=== PATIENT | female | born 1995 | race Caucasian/White ===

== ENCOUNTER 2017-05-04 18:21 | Emergency (ER) | payer OTHER ==
[2017-05-04 19:31] VITALS: O2SAT 100
[2017-05-04 19:38] LABS: Bilirubin NEGATIVE (NEGATIVE); Blood 50 Ery/ul (0-5); COMPLETE URINE MICROSCOPIC? YES; Collection Type CATH; Glucose NEGATIVE (NEGATIVE); Leukocyte Esterase TRACE (NEGATIVE)
[2017-05-04 19:39] LABS: ADD URINE CULTURE? YES (NO); Bacteria FEW /HPF (NEGATIVE); Epithelial Cells MODERATE /HPF (FEW); Mucus MANY /HPF (NEGATIVE); WBC 0-2 /HPF (0-5)
--- NOTE | 2017-05-04 20:02 | ERPHSYRPT ---
- History of Present Illness Time Seen by Provider: 05/04/17 19:05 Source: patient, family Exam Limitations: no limitations Patient Subjective Stated Complaint: VAG BLEED SINCE YESTERDAY Triage Nursing Assessment: STATES HAD SEX WITH NEW BOYFRIEND YESTERDAY X2 WITHIN 30 MIN AND AFTER INTERCOURSE, NOTICED BRIGHT RED BLOOD AND THEN BROWN DISCHARGE. NO CLOTS. STATES BLEEDING HAS STOPPED TODAY BUT NOW HAS A 'DISCHARGE OF DARK BROWN'. ORAL CONTROL DAILY BUT NO OTHER PROTECTION. LAST PERIOD 2 WEEKS AGO. STATES LOWER ABD PAIN SINCE THIS MORNING 'FEELS LIKE WHEN I HAD CYSTS A LONG TIME AGO' ROSI/VAGINAL AREA 'GRAY WHEN I PEE'. Timing/Duration: yesterday Activites at Onset: sexual activity Quality: dullness Onset Location: vaginal Pain Radiation: vaginal Severity of Pain-Max: mild Severity of Pain-Current: none Prior abdominal problems: none Sexual intercourse history: single partner Modifying Factors: Improves With: nothing Associated Symptoms: vaginal discharge (dark blood) Allergies/Adverse Reactions: No Known Drug Allergies Allergy (Verified 05/04/17 18:33) Home Medications: Control Pills 1 tab PO DAILY 08/02/14 [History] Bupropion HCl [Wellbutrin] 100 mg PO DAILY 05/04/17 [History] Clonazepam [Klonopin] 1 mg PO UD 05/04/17 [History] Hx Tetanus, Diphtheria Vaccination/Date Given: Yes Hx Influenza Vaccination/Date Given: No Hx Pneumococcal Vaccination/Date Given: No - Review of Systems Constitutional: No Symptoms Eyes: No Symptoms Ears, Nose, & Throat: No Symptoms Respiratory: No Symptoms Cardiac: No Symptoms Abdominal/Gastrointestinal: No Symptoms Genitourinary Symptoms: Vaginal Bleeding, Vaginal Discharge, No Dysuria Musculoskeletal: No Symptoms Skin: No Symptoms Neurological: No Symptoms Psychological: No Symptoms Endocrine: No Symptoms Hematologic/Lymphatic: No Symptoms Immunological/Allergic: No Symptoms - Past Medical History Pertinent Past Medical History: Yes (healthy) Neurological History: No Pertinent History ENT History: No Pertinent History Cardiac History: No Pertinent History Respiratory History: No Pertinent History Endocrine Medical History: No Pertinent History Musculoskeletal History: No Pertinent History GI Medical History: No Pertinent History History: No Pertinent History Psycho-Social History: Depression Female Reproductive Disorders: No Pertinent History Other Medical History: ovarian cysts - Past Surgical History Past Surgical History: No - Social History Smoking Status: Current every day smoker Exposure to second hand smoke: Yes Drug Use: none Patient Lives Alone: No - Female History Hx Last Menstrual Period: 2 WEEKS - Nursing Vital Signs Nursing Vital Signs: Initial Vital Signs Respiratory Rate 18 05/04/17 18:27 Blood Pressure 138/67 05/04/17 18:27 O2 Sat by Pulse Oximetry 98 05/04/17 18:27 Pain Scale Pain Intensity 10 - Physical Exam General Appearance: no apparent distress Eye Exam: eyes nml inspection Ears, Nose, Throat Exam: normal ENT inspection Neck Exam: normal inspection, non-tender, supple, full range of motion Respiratory Exam: normal breath sounds, lungs clear, airway intact, No respiratory distress Cardiovascular Exam: regular rate/rhythm, normal heart sounds, normal peripheral pulses Gastrointestinal/Abdomen Exam: soft, normal bowel sounds, tenderness (mild lower quadrants) Pelvic Exam: normal external exam, vaginal bleeding, vaginal discharge (pinkish brown. ), other (GC, Chlamydia and wet prep preformed D/T unprotected sex with new boyfriend reported later in course of treatment.), No adnexal tenderness, No adnexal mass, No mass, No cervical motion tenderness, No uterine tenderness Back Exam: normal inspection, normal range of motion Extremity Exam: normal inspection, normal range of motion, pelvis stable Neurologic Exam: alert, oriented x 3, cooperative Skin Exam: normal color, warm, dry, No rash SpO2 Interpretation: normal SpO2: 100 Oxygen Delivery: Room Air - Course Nursing assessment & vital signs reviewed: Yes Ordered Tests: Active Orders 24 hr Category Date Time Status Cath for Specimen-Straight STAT Care 05/04/17 18:37 Active Pelvic Exam Assist STAT Care 05/04/17 19:28 Active CULTURE,URINE Stat Lab 05/04/17 19:15 Received HCG QUALITATIVE,SERUM Stat Lab 05/04/17 19:00 Completed UA W/ MICROSCOPIC Stat Lab 05/04/17 19:15 Completed Wet Prep Stat Lab 05/04/17 20:25 Completed Lab/Rad Data: Laboratory Results 05/04/17 05/04/17 05/04/17 Range/Units 20:25 20:25 19:15 Serum , Qual (Negative) Ur Collection Type CATH Urine Color YELLOW (YELLOW) Urine Appearance CLEAR (CLEAR) Urine pH 5.0 (5-6) Ur Specific [place] 1.020 (1.005-1.025) Urine Protein NEGATIVE (Negative) Urine Ketones NEGATIVE (NEGATIVE) Urine Blood 50 (0-5) Julien/ul Urine Nitrite NEGATIVE (NEGATIVE) Urine Bilirubin NEGATIVE (NEGATIVE) Urine Urobilinogen NORMAL (0-1) mg/dL Ur Leukocyte Esterase TRACE (NEGATIVE) Urine Microscopic RBC 0-2 (0-2) /HPF Urine Microscopic WBC 0-2 (0-5) /HPF Ur Epithelial Cells MODERATE (FEW) /HPF Urine Bacteria FEW (NEGATIVE) /HPF Urine Mucus MANY (NEGATIVE) /HPF Urine Glucose NEGATIVE (NEGATIVE) mg/dL WBC (Wet Prep) Moderate RBC (Wet Prep) Rare Epi Cells (Wet Prep) Moderate Bacteria (Wet Prep) Few Clue Cells (Wet Prep) Few Trichomonas (Wet Prep) None Seen Budding Yeast (Wet Prp) None Seen Chlamydia DNA (PCR) NEGATIVE N.gonorrhoeae DNA Probe NEGATIVE Specimen Received 05/04/17 1715 05/04/17 Range/Units 19:00 Serum , Qual NEGATIVE (Negative) Ur Collection Type Urine Color (YELLOW) Urine Appearance (CLEAR) Urine pH (5-6) Ur Specific [place] (1.005-1.025) Urine Protein (Negative) Urine Ketones (NEGATIVE) Urine Blood (0-5) Julien/ul Urine Nitrite (NEGATIVE) Urine Bilirubin (NEGATIVE) Urine Urobilinogen (0-1) mg/dL Ur Leukocyte Esterase (NEGATIVE) Urine Microscopic RBC (0-2) /HPF Urine Microscopic WBC (0-5) /HPF Ur Epithelial Cells (FEW) /HPF Urine Bacteria (NEGATIVE) /HPF Urine Mucus (NEGATIVE) /HPF Urine Glucose (NEGATIVE) mg/dL WBC (Wet Prep) RBC (Wet Prep) Epi Cells (Wet Prep) Bacteria (Wet Prep) Clue Cells (Wet Prep) Trichomonas (Wet Prep) Budding Yeast (Wet Prp) Chlamydia DNA (PCR) N.gonorrhoeae DNA Probe Specimen Received - Progress Progress: improved Air Movement: good Blood Culture(s) Obtained: No Will see patient in: office ([employer] 1-2 weeks) Counseled pt/family regarding: lab results, diagnosis, need for follow-up - Departure Time of Disposition: 21:55 Departure Disposition: Home Clinical Impression: Bacterial vaginosis Condition: Stable Critical Care Time: No Referrals: CHRISTIANO OVALLES [Primary Care Provider] - Prescriptions: Metronidazole 500 mg [Flagyl 500 MG] 500 mg PO TID 7 Days #21 tablet
[2017-05-04 20:30] LABS: Bacteria Few; Clue Cells Few; Trichomonas None Seen; Yeast None Seen
[2017-05-04 21:56] LABS: CHLAMYDIA DNA NEGATIVE
[2017-05-04] MEDS ORDERED: Flagyl 500 MG PO ONE (22:08)
[2017-05-04] MEDS ORDERED: Flagyl 500 MG ONE (22:11)
[2017-05-04 22:13] VITALS: BP 118/76; PULSE 76
[2017-05-06 00:19] LABS: HEPATITIS B VIRUS CORE TOT AB Non Reactive (Non Reactive); Hepatitis B Surface Ab.Quant. <3.50 mIU/mL (0.00-8.49)
== END 2017-05-04 22:13 | disposition home or self-care (01) ==
LOC: ED 18:21
DX: N76.0 Acute vaginitis (principal); B96.89 Other specified bacterial agents as the cause of diseases classified elsewhere
CPT/HCPCS: 36415; 80074; 81000; 84703; 86701; 86702; 87086; 87210; 87389; 87490; 87590; 99283; P9612; A9270-GY

== ENCOUNTER 2023-12-18 06:58 | Day surgery (SDC) | payer BC ==
[2023-12-18 07:09] LABS: HCG URINE TEST NEGATIVE (NEGATIVE)
[2023-12-18] MEDS: CEFAZOLIN 2 GM-D5W BAG** 2 GM/50 ML ML IV SCH (07:14)
[2023-12-18] MEDS: Lactated Ringers 1,000 ML IV SCH (07:15)
[2023-12-18 07:28] VITALS: RESP 16
[2023-12-18] MEDS ORDERED: Xylocaine-Mpf 2% 5 Ml Vial ONE (08:46)
[2023-12-18] MEDS ORDERED: TORAdol 30 mg Injection ONE (08:51)
[2023-12-18] MEDS ORDERED: Versed 2 MG/2 ML Injection ONE (08:57)
[2023-12-18 09:55] VITALS: O2SAT 100
[2023-12-18] MEDS ORDERED: NORCO 5/325 MG ONE (10:02)
[2023-12-18] MEDS: NORCO 5/325 MG PO PRN (10:03)
[2023-12-18 10:10] VITALS: BP 131/82; PULSE 77; TEMP 98.3
--- NOTE | 2023-12-18 11:30 | OP ---
SURGERY DATE/TIME: 12/18/2023 0857 PREOPERATIVE DIAGNOSIS: Right carpal tunnel syndrome. POSTOPERATIVE DIAGNOSIS: Right carpal tunnel syndrome. PROCEDURE: Right carpal tunnel release. SURGEON: Rai Telles II, D.O. ANESTHESIA: Beir block. DESCRIPTION OF PROCEDURE: The patient is identified and informed consent was obtained. The patient was taken to the operative suite where the Neftali block anesthetic was administered. Once an appropriate level of anesthesia had been obtained, the right upper extremity was prepped and draped in the usual sterile fashion. A standard time out was taken. At this point, an incision was carried out from the distal wrist crease to the level of the fully abducted web space just ulnar to the thenar crease. The skin incised and dissection was carried out through the subcutaneous tissue and Heiss retractor positioned proximally and distally. Dissection was then carried out through the superficial palmar fascia and the retractors were repositioned. A Ragnell retractor was placed proximally under the skin and subcutaneous tissue. At this point, a fresh #15 knife blade was utilized to resect the transverse carpal ligament. Care was taken to identify the nerve which is noted to be on the far radial side of the wound. At this point, the transverse carpal ligament was released. The nerve was noted to be flattened, hourglass shaped and hyperemic. The floor was inspected and no masses or cysts. The flexor tendons were noted to be intact. The motor branch was inspected and noted to be intact. The antebrachial fascia was then split proximally for a distance of about 2 cm with a pair of baby Metzenbaum scissors. The wound is such that the operators fingertip could be placed into the canal. The wound was then copiously irrigated and closed with interrupted 5-0 Nylon suture. Adaptic, 4x4 and a Murdock dressing applied. The patient was then transferred to day surgery in satisfactory condition having tolerated the procedure well.
== END 2023-12-18 10:45 | disposition home or self-care (01) ==
LOC: SDC 06:58
PROVIDERS: ATTEND Orthopaedic Surgery
DX: G56.01 Carpal tunnel syndrome, right upper limb (principal)
CPT/HCPCS: 64721; 81025; J0690; J1885; J2250; A9270-GY

== ENCOUNTER 2024-09-11 12:29 | Emergency (ER) | payer BC ==
[2024-09-11 12:49] VITALS: BP 145/88; PULSE 81; RESP 20; TEMP 97.5
[2024-09-11] MEDS ORDERED: XYLOCAINE 1% HCL 20 ML MDV ONE (12:52)
--- NOTE | 2024-09-11 12:52 | ERPHSYRPT ---
- History of Present Illness Time Seen by Provider: 09/11/24 12:51 Source: patient Exam Limitations: no limitations Patient Subjective Stated Complaint: Foreign body- dermal piercing to abdomen Triage Nursing Assessment: Patient ambulated back to ED and transferred to bed per self. Patient A+O X 3. Patient's skin pink, warm and dry. Patient states she has a dermal piercing to her abdomen above her belly button that the top came off 4 days ago. Patient went to her insurance associate 2 days ago and they were unable to get it out. Patient complains of pain to area 4/10. Physician History: This is a 28-year-old white female patient who had a supraumbilical midline dermal piercing placed a few years ago. Approximately 4 days ago, the external portion of the piercing fell off but the internal portion remained in place. The shop that placed the piercing could not remove the backing and therefore the patient arrives today accompanied by her mother to have the internal, subcutaneous backing removed. Quality: other (No pain) Location: other (Dermal piercing midline supraumbilical location) Associated Symptoms: denies symptoms Allergies/Adverse Reactions: sulfamethoxazole [From Bactrim] Allergy (Unknown, Verified 09/11/24 12:37) trimethoprim [From Bactrim] Allergy (Unknown, Verified 09/11/24 12:37) Latex, Natural Rubber Allergy (Verified 09/11/24 12:37) Rash Home Medications: Control Pills 1 tab PO DAILY 08/02/14 [History] Hx Tetanus, Diphtheria Vaccination/Date Given: No Hx Influenza Vaccination/Date Given: Yes Hx Pneumococcal Vaccination/Date Given: No Immunizations Up to Date: Yes Travel Risk - International Travel Have you traveled outside of the country in past 3 weeks: No - Emerging Infectious Disease Are you exhibiting symptoms associated with any current EIDs: No - Review of Systems Constitutional: No Symptoms Eyes: No Symptoms Ears, Nose, & Throat: No Symptoms Respiratory: No Symptoms Cardiac: No Symptoms Abdominal/Gastrointestinal: No Symptoms Genitourinary Symptoms: No Symptoms Musculoskeletal: No Symptoms Skin: Other (Palpable, supraumbilical midline subdermal foreign body present without evidence of infection) Neurological: No Symptoms Psychological: No Symptoms Endocrine: No Symptoms Hematologic/Lymphatic: No Symptoms Immunological/Allergic: No Symptoms All Other Systems: Reviewed and Negative - Past Medical History Pertinent Past Medical History: Yes (healthy) Neurological History: No Pertinent History ENT History: No Pertinent History Cardiac History: No Pertinent History Respiratory History: No Pertinent History Endocrine Medical History: No Pertinent History Musculoskeletal History: No Pertinent History GI Medical History: No Pertinent History History: No Pertinent History Psycho-Social History: Depression Female Reproductive Disorders: No Pertinent History Other Medical History: -SKIN CANCER SPOT REMOVED ON BACK (APR 2023) - Past Surgical History Past Surgical History: No Neuro Surgical History: No Pertinent History Cardiac: No Pertinent History Respiratory: No Pertinent History Gastrointestinal: No Pertinent History Genitourinary: No Pertinent History Musculoskeletal: Orthopedic Surgery Female Surgical History: No Pertinent History Other Surgical History: skin cancer on back. vapes daily, wisdom teeth removal. carpal tunnel surgery right hand - Female History Hx Last Menstrual Period: last month Hx Now: No - Social History Smoking Status: Never smoker Exposure to second hand smoke: No Drug Use: none Patient Lives Alone: No - Social Determinants of Health Will the patient participate in the screening: Yes Do you worry about a steady place to live?: No Do you have any problems with any of the following?: No known problems In the past 12 months,have you had to go without utilities?: No Transportation Issues: No Has anyone in your support network made you feel unsafe?: No Have you or anyone in your house had to go without enough: No - Nursing Vital Signs Nursing Vital Signs: Initial Vital Signs Temperature 97.5 F 09/11/24 12:38 Pulse Rate 81 09/11/24 12:38 Respiratory Rate 20 09/11/24 12:38 Blood Pressure 145/88 09/11/24 12:38 Pain Scale Pain Intensity 4 - Physical Exam General Appearance: no apparent distress, alert Eye Exam: PERRL/EOMI Ears, Nose, Throat Exam: normal ENT inspection, moist mucous membranes Neck Exam: normal inspection, non-tender, supple, full range of motion Respiratory Exam: airway intact, No chest tenderness, No respiratory distress Gastrointestinal/Abdomen Exam: soft, normal bowel sounds, other (Palpable, subdermal, supraumbilical midline foreign body without evidence of infection) Pelvic Exam: not done Rectal Exam: not done Back Exam: normal inspection, normal range of motion, No CVA tenderness, No vertebral tenderness Extremity Exam: normal inspection, normal range of motion, pelvis stable Neurologic Exam: alert, oriented x 3, cooperative, storage receipt poster II-XII nml as tested, normal mood/affect, nml cerebellar function, nml station & gait, sensation nml Skin Exam: normal color, warm, dry, other (Subdermal palpable supraumbilical midline foreign body without evidence of infection) Lymphatic Exam: No adenopathy SpO2 Interpretation: normal O2 Delivery: Room Air Procedures - Additional Procedures Progress: Timeout performed at 1305. Area was cleansed with alcohol pad. The dermal and subdermal regions were anesthetized with 1 cc of 1% lidocaine plain. #11 blade was used to make approximately 3 to 4 mm incision in the skin. Using curved hemostat the foreign body was completely removed intact. Area was cleaned and a Band-Aid was placed overlying the site there were no complications. The patient tolerated the procedure well - Course Nursing assessment & vital signs reviewed: Yes Ordered Tests: Medication Summary Discontinued Medications Generic Name Dose Route Start Last Admin Trade Name Freq PRN Reason Stop Dose Admin Lidocaine HCl Confirm 09/11/24 12:52 Lidocaine Hcl 1% 20 Ml Mdv 20 Ml Ml Administered 09/11/24 12:53 Dose 1 ml .ROUTE [employer] ONE - Progress Progress: improved Progress Note: 09/11/24 13:19 My medical decision making and the assignment of low complexity to this patient's medical issue today is based on review of the patient's past medical history, review of the patient's medication list, review the patient drug allergy list, history present illness and physical findings on examination. The workup does not require radiographic or laboratory studies. Differential diagnosis includes but is not limited to subcutaneous, subdermal foreign body Counseled pt/family regarding: diagnosis Medical Desision Making - Independent Historian Additional History obtained from: Mother - Diagnostic Testing Diagnostic test were ordered, analyzed, and reviewed by me: No - Risk of complications Minimal Risk: Minimal risk of morbidity - Departure Departure Disposition: Home Clinical Impression: Hx of retained foreign body fully removed Condition: Stable Critical Care Time: No Referrals: CHRISTIANO OVALLES NP [Primary Care Provider] - Follow up/PCP as directed Additional Instructions: Keep the site of foreign body removal clean daily with soap and water and covered with bandage. Do not apply antibiotic ointment lotions or creams. Use Tylenol and ibuprofen, if there are no contraindications, for pain control
== END 2024-09-11 13:28 | disposition home or self-care (01) ==
LOC: ED 12:29
DX: M79.5 Residual foreign body in soft tissue (principal)
CPT/HCPCS: 10120; 99283